=== PATIENT | male | born 1945 | race Two or more races ===

== ENCOUNTER 2017-12-15 11:14 | Outpatient (CLI) | payer MEDICARE | END 2017-12-15 23:59 | disposition home or self-care (01) | LOC: WOU 11:14 | PROVIDERS: ATTEND Surgery | DX: T81.31XA Disruption of external operation (surgical) wound, not elsewhere classified, initial encounter (principal); T86.821 Skin graft (allograft) (autograft) failure; C44.02 Squamous cell carcinoma of skin of lip; Z87.891 Personal history of nicotine dependence; I25.2 Old myocardial infarction; E11.9 Type 2 diabetes mellitus without complications | CPT/HCPCS: 11042; A6402 ==